=== PATIENT | female | born 1980 | race Caucasian/White ===

== ENCOUNTER 2018-03-08 13:42 | Inpatient (IN) | payer OTHER ==
[~2018-03-08] VITALS: Ht 175.3 cm; Wt 74.8 kg
[2018-03-08 14:18] LABS: ABSOLUTE BASOPHIL COUNT 0 /CUMM (0.0-0.2); ABSOLUTE EOSINOPHIL COUNT 0 /CUMM (0.0-0.7); ABSOLUTE GRANULOCYTE CT 5.1 /CUMM (1.4-6.5); ABSOLUTE LYMPH COUNT 1.5 /CUMM (1.2-3.4); ABSOLUTE MONOCYTE COUNT 0.6 /CUMM (0.10-0.60); BASOPHIL % 0.4 % (0.0-2.0); EOSINOPHIL % 0.2 % (0-5); GRANULOCYTE % 69.8 % (42.2-75.2); HEMATOCRIT 32.3 % (37-47); MEAN CORPUSCULAR HGB 29.4 PG (27.0-31.0); MEAN CORPUSCULAR VOLUME 86.4 FL (81.0-99.0); MEAN PLATELET VOLUME 9.6 FL (7.4-10.4); PLATELET COUNT 212 /CUMM (130-400); RBC DISTRIBUTION WIDTH 14.2 % (11.5-14.5); RED BLOOD CELL CT 3.74 /CUMM (4.20-5.40); WHITE BLOOD CELL COUNT 7.3 /CUMM (4.8-10.8)
--- NOTE | 2018-03-08 14:47 | PN- OBGYN ---
Surgical Brief Attending Note Brief Attending Note: Cervical zuniga 22 greenlandic placed under aseptic technique and misoprostol 25 microgram placed per vagina. Full note to follow. Consent for treatment, misoprostol and Nitrous obtained. Ample time given for questions. Cervix of 1-2cm/50/-1/posterior/soft. Jensen of 5. Abnormal glucose test. Fingerstick random of 76. A1C pending. NST. 150 accelerations and no decelerations and moderate variability. [place] minimal contractions irregular noted.
[2018-03-08] MEDS ORDERED: PRENATAL TABLE1 EAC2 PO (14:48)
--- NOTE | 2018-03-08 17:06 | History & Physical ---
General Information and HPI MD Statement: I have seen and personally examined ANGEL RANKIN and documented this H&P. The patient is a 38 year old female at 40 weeks and 0 days gestation who presented with a chief complaint of induction of labor. Source of Information: patient, old records Exam Limitations: no limitations History of Present Illness: Patient is a 38 year old female with complicated by 1) pelvic kidney 2) AMA 3) marginal placental cord insertion 4) abnormal glucose challenge for induction of labor at 40 weeks Allergies/Medications Allergies: Coded Allergies: No Known Allergies (03/08/18) Home Med list Vit No.130/Iron/FA ( Tablet) 27 MG IRON-800 MCG TABLET 1 TAB PO DAILY (Reported) Compliance With Home Meds: GOOD Past History office admin History : 1 Para: 0 Last Menstrual Period: 06/02/17 Estimated Delivery Date: 03/08/18 Past office admin History: none Medical History Blood Transfusion Hx: No Neurological: NONE EENT: NONE Cardiovascular: NONE Respiratory: NONE Gastrointestinal: NONE Hepatic: NONE Renal: NONE Musculoskeletal: NONE Psychiatric: NONE Endocrine: NONE Blood Disorders: NONE Cancer(s): NONE SPRAY WORKER/Reproductive: NONE Other Medical Hx: NA Surgical History Pertinent Surgical History: none Past Family/Social History Psychosocial History Where do you live? Home Who Do You Live With? spouse Primary Language: Armenian (Secondary Malawian) Smoking Status: Never Smoked ETOH Use: denies use Illicit Drug Use: denies illicit drug use Living Will? unknown Power of Dental Financial Coordinator/HCP? unknown Employment History Employment Employed Profession/Employer [employer] Review of Systems Review of Systems Constitutional: Denies: no symptoms. EENTM: Denies: no symptoms. Cardiovascular: Denies: no symptoms. Respiratory: Denies: no symptoms. GI: Denies: no symptoms. Genitourinary: Denies: no symptoms. Musculoskeletal: Denies: no symptoms. Skin: Denies: no symptoms. Neurological/Psychological: Denies: no symptoms. Hematologic/Endocrine: Denies: no symptoms. Immunologic/Allergic: Denies: no symptoms. All Other Systems: Reviewed and Negative Date of LMP: 06/02/17 Post Menopausal: No Mammogram Testing Status: Test never done Date of Last Pap Smear: 11/06/17 Colonoscopy Testing Status: Test never done Exam & Diagnostic Data Last 24 Hrs of Vital Signs/I&O Intake & Output 03/08 1600 03/08 0800 03/08 0000 Intake Total Output Total Balance Patient 74.843 kg Weight Obstetric Exam Wgt Gained During : 32 lbs Pelvimetry: Gynecoid Dilation (cm): 1 Effacement (%): 50 Station: -1 Membranes: intact Fluid: Intact Fundal Height (cm): 39 Multiple Gestation? No Contractions: Irregular and mild q2-5 Infant #1 - FHR Baseline: 140 Category: 1 Estimated Weight: 3200 grams by [place] Presentation: Cephalic Patient for Induction? Yes Jensen Score Jensen Score Response Value Cervix Position: posterior 0 Cervix Consistency: soft 2 Cervix Effacement: 30-50% 1 Cervix Dilation: 1-2 cm 1 Cervix Station: -2 1 Total 5 Physical Exam General Appearance Alert, Oriented X3, Cooperative, No Acute Distress Skin No Rashes, No Breakdown HEENT Atraumatic Neck Supple Cardiovascular Regular Rate, Normal S1, Normal S2 Lungs Clear to Auscultation, Normal Air Movement Abdomen Normal Bowel Sounds, Soft Neurological Normal Gait, Normal Speech, Strength at 5/5 X4 Ext, Normal Tone, Sensation Intact, Cranial Nerves 3-12 NL, Reflexes 2+ Extremities No Edema Vascular Pulses Symmetrical Breasts Breast appear nl Reproductive (FEMALE) Normal female genitalia Pelvic (FEMALE) Appearance Normal Rectal No Fissures, No Hemorrhoids Labs Blood Type & Rh: O negative Antibody Screen: negative Hct/Hgb & Platelets #1: 36.6/210 Hct/Hgb & Platelets #2: 31.7/177 Rubella: Immune VDRL #1: negative VDRL #2: negative HbsAg: negative HIV #1: negative HIV #2 negative 1 Hr P 3 Hr PG: Not completed Group B Strep: negative 02/12/18 Initial Ultrasound: 11/03/17; Male fetus, pelvic kidney, marginal cord Anatomy Ultrasound: As above Ultrasound for EFW: 2728 grams at 02/12/18 Genetic Testing: Negative NIPT and normal afp Last 24 Hrs of Labs/Krish: Laboratory Tests 03/08/18 1600: Urinalysis MOD H, Urine Color YEL, Urine Clarity HAZY H, Urine pH 7.5, Ur Specific [place] 1.020, Urine Protein NEG, Urine Ketones 15 H, Urine Nitrite NEG, Urine Bilirubin NEG, Urine Urobilinogen 0.2, Ur Leukocyte Esterase NEG, Ur Microscopic SEDIMENT EXAMINED, Urine RBC 1-3, Urine WBC 1-3 H, Ur Epithelial Cells FEW, Urine Bacteria MOD H, Urine Mucus FEW, Urine Hemoglobin NEG, Urine Glucose NEG 03/08/18 1359: RPR Titer/FTA Pending 03/08/18 1359: Hemoglobin A1c 5.4, CBC w Diff NO MAN DIFF REQ, RBC 3.74 L, MCV 86.4, MCH 29.4, MCHC 34.0, RDW 14.2, MPV 9.6, Gran % 69.8, Lymphocytes % 20.9, Monocytes % 8.7, Eosinophils % 0.2, Basophils % 0.4, Absolute Granulocytes 5.1, Absolute Lymphocytes 1.5, Absolute Monocytes 0.6, Absolute Eosinophils 0, Absolute Basophils 0, HIV 1&2 Ab Western Blot NONREACTIVE 03/08/18 1351: Hemoglobin A1c Cancelled Assessment/Plan Assessment/Plan: 38 year old nulliparous female at 40 weeks with complicated by 1) 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 Induction to start with cervical zuniga and misoprostol to decrease induction to delivery interval. She is GBBS negative so no PCN is needed. Risks of induction being failure, abnormal heart rate and or pyrexia. We discussed pain mgmt for labor including narcotics and or nitrous oxide and or epidural. We discussed nutrition during labor We discussed breast feeding for Follow up rh status on to determine need for rhogam Fingerstick first was 76. Will do surveillance levels intrapartum and A1C is 5.4. Potential as a GDM would be hypoglycemia in the and or electrolyte disturbance. As AMA she is at risk for preeclampsia however no findings at present. Marginal cord insertion. Most recent ultrasound for growth was wnl so will reassess today. Follow up pathology of placenta. pelvic kidney. ultrasound to reassess same. As per MFM a relatively common entity with incidence of 1:2000 to 1:3000 pregnancies. Ample time given for patient and partner to ask questions. testing thus far today normal. Anticipate vaginal with monitoring per hospital parameters in the latent phase and active phase. As Ranked By This Provider Problem List: 1. Abnormal glucose affecting 2. Advanced maternal age (AMA) in Core Measures Venous Thromboembolism VTE Risk Factors / No Mechanical VTE Prophylaxis d/t N/A MechProphylax Ordered No VTE Pharm Prophylaxis d/t Other Comment: Alps in labor Attending MD Review Statement Attending Statement Attending MD Statement: examined this patient, discussed with family, discussed w/nursing
--- NOTE | 2018-03-08 18:05 | PN- OBGYN ---
Surgical Brief Attending Note Brief Attending Note: Limited bedside ultrasound 3403 grams and cephalic presentation. OP rotation. Grade 3 placenta noted. MVP of 5 cm Bladder seen. Right kidney noted but other is pelvic kidney. No hydronephrosis noted on right kidney. For ultrasound with Peds.
--- NOTE | 2018-03-08 19:05 | PN- OBGYN ---
Surgical Brief Attending Note Brief Attending Note: Second misoprostol placed per vagina. 25 micrograms. Catagory 1 tracing and now contractions (mild) are every [address] next misoprostol 3-4 hours and zuniga removal at 12 hours. Oxytocin after that if contraction pattern minimal.
--- NOTE | 2018-03-09 02:25 | PN- OBGYN ---
Surgical Brief Attending Note Brief Attending Note: Patient comfortable with feelings of mild contractions pains Vitals per paper chart Abdomen soft Catagory 1 tracing 80/-1 noted after removal of cervical zuniga. [place] showing q2 minute contractions Induction of labor S/p zuniga and misoprostol x 3 now with favorable wagner score To start oxytocin per protocol if spaces out contractions however more likely wont need as pattern is good GBBS negative so no need for PCN Pain medication as needed Anticipate vaginal . Abnormal GCT no GTT. Fingerstick earlier was 76 and A1C was normal.
--- NOTE | 2018-03-09 07:33 | PN- OBGYN ---
Surgical Brief Attending Note Brief Attending Note: Patient examined States she is comfortable AVSS 6/100/-2 Catagory 1 tracing CTX every 1-2 minutes Continue expectant management.
--- NOTE | 2018-03-09 11:40 | PN- OBGYN ---
Surgical Brief Attending Note Brief Attending Note: Seen and evaluated Occasional pressure. movement noted AVSS catagory 1 tracing 6/100/-2 AROM copious clear fluid Fingerstick 76 on repeat Induction of labor Now at 6 cm Reassess in 1-2 hours. If no change and hypotonic contractions than oxytocin Gynecoid pelvis and EFW 3.4 kg. Abnormal GCT no GTT but A1c normal and two random glucose are wnl. Expectant management at present GBBS negative.
--- NOTE | 2018-03-09 12:51 | PN- OBGYN ---
Surgical Brief Attending Note Brief Attending Note: Per Nursing contraction pattern is "spaced out" I will start on oxytocin to increase contraction strength and frequency and to complete induction process. Epidural as needed. Catagory 1 tracing noted.
--- NOTE | 2018-03-09 17:59 | PN- OBGYN ---
Surgical Brief Attending Note Brief Attending Note: Patient seen and evaluated Last exam she was 7 cm when scalp electrode and IUPC placed Oxytocin has now been on since 1250 pm catagory 1 tracing [place] units are 110-150. Thus hypotonic contraction pattern as cause of failure to dilate in my opinion. Allow 6-8 hours of oxytocin and reassess which will be by 7 pm. Patient is feeling more rectal pressure Afebrile at present and normotensive Epidural in place Brit[place] in place. Discussed risks of infection and uterine atony with increase in time for allowing labor. Continue current management.
--- NOTE | 2018-03-09 18:48 | PN- OBGYN ---
Surgical Brief Attending Note Brief Attending Note: Feeling more pressure 8/100/-2/mid cervical position. Head now well applied to cervix where previously it was not Catagory 1 tracing Oxytocin at 16. Continue current managment. Previous hypotonic contractions. Now increasing with [place] and cervical change noted. I am concerned about potential persistant OP (noted on US from last evening) as reason behind protracted course. Will watch for progress once fully dilated. Urine output good.
--- NOTE | 2018-03-09 20:57 | Labor & Delivery Summary ---
Delivery Summary Vaginal Delivery: Vaginal: spontaneous Episiotomy/Lacerations: Episiotomy/Lacerations: 2nd degree fourchette Type: 2nd degree fourchette Repair: 3-0 vicryl Anesthesia: epidural Placenta: Placenta: spontanteous, abnormal, nuchal cord (x_), Nuchal x 1. Clamped and cut Marginal cord insertion Anesthesia: Epidural Baby's Weight: 3995 Apgars - 1 Min: 8 Apgars - 5 Min: 8 Additional Comments: Delivered through intact perineum. Restituted to LOT and anterior shoulder was left. Clamped and cut nuchal cord. Shoulders passed spontaneously. Placed on mother's abdomen. Cry wash heard. Placenta passed spontaneously and intact. marginal cord noted Repair completed without difficulty. Rectum intact. EBL 300 cc Fundus tonic after oxytocin 10 minutes was 8 . Breast feeding noted after delivery. Rhogam studies to be sent.
[2018-03-10 07:12] LABS: ABSOLUTE BASOPHIL COUNT 0 /CUMM (0.0-0.2); ABSOLUTE EOSINOPHIL COUNT 0 /CUMM (0.0-0.7); ABSOLUTE GRANULOCYTE CT 11.9 /CUMM (1.4-6.5); ABSOLUTE LYMPH COUNT 1.2 /CUMM (1.2-3.4); ABSOLUTE MONOCYTE COUNT 0.9 /CUMM (0.10-0.60); BASOPHIL % 0.2 % (0.0-2.0); EOSINOPHIL % 0 % (0-5); GRANULOCYTE % 84.4 % (42.2-75.2); HEMATOCRIT 32.1 % (37-47); MEAN CORPUSCULAR HGB 29.3 PG (27.0-31.0); MEAN CORPUSCULAR HGB CONC 33.4 G/DL (33.0-37.0); MEAN CORPUSCULAR VOLUME 87.8 FL (81.0-99.0); PLATELET COUNT 197 /CUMM (130-400); RBC DISTRIBUTION WIDTH 14.3 % (11.5-14.5); RED BLOOD CELL CT 3.66 /CUMM (4.20-5.40)
[2018-03-10 07:17] LABS: WHITE BLOOD CELL COUNT 14.1 /CUMM (4.8-10.8)
--- NOTE | 2018-03-10 08:50 | PN- OBGYN ---
Surgical Brief Attending Note Brief Attending Note: Seen and evaluated Feeling well and offers only complaint of numbness in her upper anterior right thigh. Denies back pain Denies cramps Denies vaginal bleeding Aox3 VSS Neuro. Motor 5/5 in right leg in upper and lower area. Hct 32 PPD #1 Follow up Rh status on to determine if needs patient needs rhogam Neuro. No motor loss. Anticipate recovery of sensation in upper thigh. Residual from epidural or positioning. Will follow. Breast feeding counseling provided Anticipate dc tomorrow.
--- NOTE | 2018-03-11 08:26 | PN- OBGYN ---
Surgical Brief Attending Note Brief Attending Note: Seen and evaluated. Offers no complaints except mild vaginal discomfort No back tenderness AVSS Abdomen soft and fundus nontender Back no tenderness Extremities without edema Rh negative PPD#2 DC home today. Follow up with CBC at [place] per hospital protocol Peds Urology follow up for at [place] in one week Peds follow up two weeks per [facility] Chair recs 4 week follow up with Obgyn Breast feeding counseilng Perineal care instructions given No identified issues for increase in depression risk S/p Rhogam Continue on vitamins and additional vitamin d as she is exclusively breast feeding.
== END 2018-03-11 10:00 | DRG 775 ==
LOC: GNO 13:42
PROVIDERS: Obstetrics & Gynecology
PROC: 10E0XZZ Delivery of Products of Conception, External Approach (ICD-10-PCS; principal; 2018-03-08)
PROC: 0KQM0ZZ Repair Perineum Muscle, Open Approach (ICD-10-PCS; principal; 2018-03-08)
PROC: 3E0P7VZ Introduction of Hormone into Female Reproductive, Via Natural or Artificial Opening (ICD-10-PCS; principal; 2018-03-08)
DX: O70.0 First degree perineal laceration during delivery (principal); Z37.0 Single live birth; O33.0 Maternal care for disproportion due to deformity of maternal pelvic bones; O69.81X0 Labor and delivery complicated by cord around neck, without compression, not applicable or unspecified; Z3A.40 40 weeks gestation of pregnancy; O43.123 Velamentous insertion of umbilical cord, third trimester; O99.814 Abnormal glucose complicating childbirth
CPT/HCPCS: GNOP; GNOS; 36415; 81001; 86920; 86922; 87086; 87389; J2790; J7120